=== PATIENT | male | born 1955 | race Hispanic/Latino ===

== ENCOUNTER 2018-05-13 22:58 | Emergency (ER) | payer SELFPAY ==
[2018-05-13 22:58] VITALS: BMI 27.3
[2018-05-13 23:05] VITALS: O2SAT 98
--- NOTE | 2018-05-13 23:42 | ED PDOC ---
Arrival/HPI - General Historian: Patient - History of Present Illness Time/Duration: < week Symptom Onset: Gradual Symptom Course: Intermittent Quality: Stabbing Severity Level: 6 - General Chief Complaint: Abdominal Pain Time Seen by Provider: 05/13/18 23:19 - History of Present Illness Narrative History of Present Illness (Text): 63 year old male with PMH of diverticulitis, SBO, presents with 3 days of abdominal pain associated with diarrhea and dark colored urine. Patient states abdominal pain is located in LLQ and describes it as sharp, stabbing, intermittent and 6/10 intensity. Patient has also noticed dark urine and has had over 10 episodes on NB "oily" diarrhea. Patient denies chest pain, fever, chills, SOB, sick contacts or any other complaints at this time. 05/13/18 23:39 (Houston Holley) Past Medical History - Provider Review Nursing Documentation Reviewed: Yes - Infectious Disease Hx of Infectious Diseases: None - Tetanus Immunization Tetanus Immunization: Unknown - Cardiac Hx Cardiac Disorders: No - Pulmonary Hx Respiratory Disorders: No - Neurological Hx Neurological Disorder: No - HEENT Hx HEENT Disorder: No - Renal Hx Renal Disorder: No - Endocrine/Metabolic Hx Endocrine Disorders: No - Hematological/Oncological Hx Blood Disorders: No - Integumentary Hx Dermatological Disorder: No - Musculoskeletal/Rheumatological Hx Arthritis: Yes - Gastrointestinal Hx Diverticulitis: Yes - Genitourinary/Gynecological Hx Genitourinary Disorders: No - Psychiatric Hx Substance Use: No (RECOVERY X15YRS) Other/Comment: drug/etoh hx,recovery x15yrs - Surgical History Hx Cholecystectomy: Yes - Anesthesia Hx Anesthesia: Yes Hx Anesthesia Reactions: No Hx Malignant Hyperthermia: No Family/Social History - Physician Review Nursing Documentation Reviewed: Yes Family/Social History: No Known Family HX Smoking Status: Former Smoker Hx Alcohol Use: No (RECOVERY X15YRS) Hx Substance Use: No (RECOVERY X15YRS) Allergies/Home Meds Allergies/Adverse Reactions: Allergies Penicillins Allergy (Verified 05/13/18 23:05) URTICARIA Review of Systems - Review of Systems Constitutional: Normal. absent: Fatigue, Weight Change, Fevers, Night Sweats Eyes: Normal ENT: Normal Respiratory: Normal. absent: SOB, Cough Cardiovascular: Normal. absent: Chest Pain Gastrointestinal: Abdominal Pain, Diarrhea, Appetite Changes. absent: Stool Changes, Nausea, Vomiting, Hematochezia, Hematemesis Genitourinary Male: Other (dark urine) Musculoskeletal: Normal Skin: Normal Neurological: Normal. absent: Headache Endocrine: Normal Hemo/Lymphatic: Normal Psychiatric: Normal Physical Exam Vital Signs Reviewed: Yes Temperature: Afebrile Blood Pressure: Normal Pulse: Regular Respiratory Rate: Normal Appearance: Positive for: Well-Appearing, Non-Toxic, Comfortable Pain Distress: None Mental Status: Positive for: Alert and Oriented X 3 - Systems Exam Head: Present: Atraumatic, Normocephalic Pupils: Present: PERRL Extroacular Muscles: Present: EOMI Conjunctiva: Present: Normal Mouth: Present: Moist Mucous Membranes Neck: Present: Normal Range of Motion Respiratory/Chest: Present: Clear to Auscultation. No: Respiratory Distress Cardiovascular: Present: Regular Rate and Rhythm, Normal S1, S2 Abdomen: Present: Tenderness. No: Distention, Peritoneal Signs, Rebound, Guarding Upper Extremity: No: Edema Lower Extremity: No: Edema Neurological: Present: GCS=15, CN II-XII Intact Skin: Present: Warm Psychiatric: Present: Alert, Oriented x 3 Vital Signs Temp Pulse Resp BP Pulse Ox 05/14/18 04:37 98.1 F 80 20 121/74 98 05/14/18 02:58 86 18 126/74 99 05/14/18 00:58 84 18 128/74 100 05/13/18 22:59 97.7 F 79 19 117/78 98 Medical Decision Making - Lab Interpretations I have reviewed the lab results: Yes ED Course and Treatment: Plan -CBC, CMP, EKG, CT abdomen and pelvis with IV contrast -amylase, lipase, c diff -reasses 05/13/18 23:44 CT Abdomen/Pelvis 1. Findings most suspicious for colonic inflammation - colitis. Please correlate with patients clinical exam. 2. Moderate colonic diverticulosis particularly involving the descending- sigmoid colon. No radiographic signs of inflammation. Thank you for allowing us to participate in the care of your patient. 05/14/18 03:56 Patient states pain has improved, will be DC home 05/14/18 04:05 (Houston Holley) Patient Seen With Resident: In agreement with resident note which contains more details about the patient. Patient was seen and evaluated with resident. Came up with plan and treatment together. (Damian Masters) - Lab Interpretations Lab Results: 05/14/18 00:14 05/14/18 00:14 Lab Results 05/14/18 03:00: Urine Color Yellow, Urine Appearance Clear, Urine pH 7.0, Ur Specific [place] <= 1.005, Urine Protein Negative, Urine Glucose (UA) Negative, Urine Ketones Negative, Urine Blood Negative, Urine Nitrate Negative, Urine Bilirubin Negative, Urine Urobilinogen 0.2, Ur Leukocyte Esterase Negative 05/14/18 00:14: Sodium 140, Potassium 3.2 L, Chloride 102, Carbon Dioxide 25, Anion Gap 16, BUN 15, Creatinine 0.9, Est GFR ( Amer) > 60, Est GFR (Non- Af Amer) > 60, Random Glucose 96, Calcium 8.3 L, Total Bilirubin 1.7 H, AST 44, ALT 51, Alkaline Phosphatase 56, Total Protein 6.3, Albumin 3.7, Globulin 2.6, Albumin/Globulin Ratio 1.4, Amylase 48, Lipase 117 05/14/18 00:14: WBC 5.0, RBC 4.39, Hgb 13.3 L, Hct 35.9 L, MCV 81.8 D, MCH 30.3 , MCHC 37.0, RDW 12.2, Plt Count 172, MPV 10.4, Gran % 62.1, Lymph % (Auto) 18.8 L, [place] % (Auto) 17.5 H, Eos % (Auto) 1.2 L, Baso % (Auto) 0.4, Gran # 3.13 , Lymph # (Auto) 1.0 L, [place] # (Auto) 0.9 H, Eos # (Auto) 0.1, Baso # (Auto) 0.02 - RAD Interpretation Radiology Orders: 05/13/18 23:38 ABDOMEN & PELVIS [ABD & PELVIS IV CONTRAST ONLY] [CT] Stat - Medication Orders Current Medication Orders: Discontinued Medications Potassium Chloride (K-Dur 20 Meq Er Tab) 40 meq PO STAT STA Stop: 05/14/18 00:59 Last Admin: 05/14/18 02:09 Dose: 40 meq Disposition/Present on Arrival - Present on Arrival Any Indicators Present on Arrival: No History of DVT/PE: No History of Uncontrolled Diabetes: No Urinary Catheter: Yes History of Decub. Ulcer: No History Surgical Site Infection Following: None - Disposition Have Diagnosis and Disposition been Completed?: Yes Disposition Time: 04:07 - Disposition Diagnosis: Colitis, Diverticulosis, Abdominal pain Disposition: HOME/ ROUTINE Condition: IMPROVED Discharge Instructions (ExitCare): Diarrhea in Adolescents and Adults, Diverticulosis (DC) Additional Instructions: Please take antibiotic twice a day for 5 days. Please follow with a GI doctor SHAJI. Prescriptions: metroNIDAZOLE [Flagyl] 500 mg PO BID #10 tab Forms: [employer] ([place])
[2018-05-14 00:45] LABS: BASO # 0.02 K/mm3 (0.0-2.0); BASO % 0.4 % (0.0-3.0); EOS # 0.1 (0.0-0.7); EOS % 1.2 % (1.5-5.0); GRAN # 3.13 (1.4-6.5); GRAN % 62.1 % (50.0-68.0); HEMOGLOBIN 13.3 g/dL (14.0-18.0); LYMPH % 18.8 % (22.0-35.0); MEAN CELL VOLUME 81.8 fl (80.0-105.0); MEAN CORPUSCULAR HEMOGLOBIN 30.3 pg (25.0-35.0); MEAN PLATELET VOLUME 10.4 fl (7.0-11.0); MONO # 0.9 (0.1-0.6); MONO % 17.5 % (1.0-6.0); RBC 4.39 10^6/uL (3.5-6.1); RED CELL DISTRIBUTION WIDTH 12.2 % (11.5-14.5)
[2018-05-14 00:53] LABS: ALB/GLOB RATIO 1.4 (1.1-1.8); ALBUMIN 3.7 g/dL (3.0-4.8); ALT/SGPT 51 U/L (7-56); AMYLASE 48 U/L (35-125); AST/SGOT 44 U/L (17-59); BLOOD UREA NITROGEN 15 mg/dL (7-21); CALCIUM 8.3 mg/dL (8.4-10.5); GFR AFRICAN-AMERICAN > 60; GFR NON-AFRICAN AMERICAN > 60; LIPASE 117 U/L (23-300)
[2018-05-14] MEDS ORDERED: Potassium Chloride 20 mEq ER Tab PO STA (00:58)
[2018-05-14] MEDS ORDERED: Iohexol 350 MG/100 ML VIAL ONE (01:30)
[2018-05-14 03:10] LABS: URINE BILIRUBIN NEGATIVE (NEGATIVE); URINE BLOOD NEGATIVE (NEGATIVE); URINE GLUCOSE (UA) NEGATIVE (NEGATIVE); URINE LEUKOCYTE ESTERASE NEGATIVE Leu/uL (NEGATIVE); URINE PROTEIN NEGATIVE mg/dL (<30 mg/dL); URINE UROBILINOGEN 0.2 E.U./dL (<1 E.U./dL)
[2018-05-14 03:11] LABS: URINE APPEARANCE CLEAR (CLEAR); URINE COLOR YELLOW (YELLOW)
[2018-05-14 04:38] VITALS: BP 121/74; PULSE 80; RESP 20; TEMP 98.1
--- NOTE | 2018-05-14 13:44 | CARD ---
APPROVED REPORT EKG Measurement Heart [id number] MT [id number] [id number] <Conclusion> Normal sinus rhythm Normal ECG
--- NOTE | 2018-05-14 17:49 | CT ---
PROCEDURE: CT Abdomen and Pelvis with contrast HISTORY: Abdominal pain COMPARISON: Comparison made with prior CT scan abdomen pelvis dated 09/21/2017. TECHNIQUE: Contrast dose: 100 cc of Omnipaque 350 contrast material the the Radiation dose: Total exam DLP = 415.59 mGy-cm. This CT exam was performed using one or more of the following dose reduction techniques: Automated exposure control, adjustment of the mA and/or kV according to patient size, and/or use of iterative reconstruction technique. FINDINGS: LOWER THORAX: Heart size within range of normal. No significant pericardial effusion. There is a small hiatal hernia. Mild irregular wall thickening of the distal esophagus likely due to protrusion of gastric mucosa. LIVER: Unremarkable. No gross lesion or ductal dilatation. GALLBLADDER AND BILE DUCTS: Cholecystectomy. PANCREAS: Unremarkable. No gross lesion or ductal dilatation. SPLEEN: Spleen is mildly enlarged measuring over 13 cm in AP dimension. No splenic masses or collections. ADRENALS: No adrenal lesions KIDNEYS AND URETERS: Re- demonstrated is a exophytic cyst lower pole right kidney. . Small exophytic cyst posterolateral cortex mid pole left kidney. VASCULATURE: Unremarkable. No aortic aneurysm. BOWEL: Evaluation of the bowel is somewhat limited due to the lack of oral contrast material. Stomach is incompletely distended which in part accounts thick-walled appearance. Gastritis or other intrinsic wall lesion not excluded. Wall thickening of the ascending, transverse colon consistent with colitis. APPENDIX: Normal appendix. PERITONEUM: Unremarkable. No free fluid. No free air. Small fat containing bilateral inguinal hernias. Small fat containing umbilical hernia. LYMPH NODES: Unremarkable. No enlarged lymph nodes. BLADDER: Urinary bladder is distended with probable small posterior inferior bladder diverticulum. REPRODUCTIVE: Prostate gland enlarged and heterogeneous with a few small calcifications findings likely due to BPH however PSA correlation recommended. Unremarkable. BONES: Mild multilevel degenerative spondylosis of the lower thoracic and lumbar spine. OTHER FINDINGS: None. IMPRESSION: Findings consistent with colitis. Mild splenomegaly. Large exophytic cyst lower pole right kidney again noted. Small exophytic cyst posterolateral cortex left kidney also again seen.
== END 2018-05-14 04:37 | disposition home or self-care (01) ==
LOC: ED 22:58
DX: K52.9 Noninfective gastroenteritis and colitis, unspecified (principal); K57.90 Diverticulosis of intestine, part unspecified, without perforation or abscess without bleeding; R10.9 Unspecified abdominal pain; Z87.891 Personal history of nicotine dependence
CPT/HCPCS: 74177; 80053; 81003; 82150; 83690; 85025; 93005; 99283; Q9967